=== PATIENT | male | born 1970 | race Caucasian/White ===

== ENCOUNTER → 2020-03-17 06:13 | Outpatient (CLI) | payer MEDICAID, SELFPAY ==
--- NOTE | 2020-03-17 06:13 | NM_ITS ---
APPROVED REPORT Exam: Nuclear Stress Test Indication: Chest pain, Fatigue, HTN Patient Location: Outpatient Stress Tech: Delmis Ramos [place] Tech:Anahi Orantes, ARRT, RT (R)(N) Ht: 6 ft 0 in Wt: 238 lbs HR: 71 bpm BP: 128/83 mmHg BSA: 2.29 m2 History: Chest pain, Fatigue, HTN Procedure: Patient exercised on Valerio protocol 8:36 minutes and sec, resting heart rate 71 bpm, resting blood pressure 128/83 mmHg, with exercise maximum heart rate achived was 156 bpm which is Greater than 85 % of the maximum predicted heart rate and blood pressure was 220/84 mmHg. Test was stopped due to SOA and leg fatigue. Patient denied any complaint of chest pain. Patient has Good exercise capacity, achieved 10.1 METs of workload on treadmill, the blood pressure response to exercise was Hypertensive. Electrocardiogram Resting electrocardiogram showed sinus rhythm right bundle branch block, with exercise there is less than 1.[address] segment depression noted from the baseline EKG. The EKG portion of the exercise Myoview is negative for ischemia. Cardiac Stress and Resting SPECT Images: Cardiac Stress and Resting SPECT images were obtained using technetium 99m Myoview 32.9 mCi stress and 10.08 mCi at rest. Gated SPECT for the analysis of segmental wall motion and calculation of the ejection fraction also done. Cardiac stress and resting SPECT images show mild fixed defect in the inferior wall with normal contractility on the gated SPECT is likely secondary to soft tissue attenuation, no reversible ischemia seen. Computer derived ejection fraction is 58% with no regional wall motion abnormality, right ventricle is normal size and contractility. Conclusion: 1. The EKG portion of the exercise Myoview is negative for ischemia, patient has good exercise capacity achieved 10.1 mets of workload on treadmill, the blood pressure response to exercise was hypertensive, there was no exercise-induced chest discomfort. 2. No scintigraphic evidence of reversible ischemia seen, computer derived ejection fraction is 58% with no regional wall motion abnormality, right ventricle is normal size and contractility. 3. Likely normal exercise Myoview study except for hypertensive blood pressure response with exercise. Electronically signed by : Tito Malone, 03/18/2020 10:56:50
--- NOTE | 2020-03-17 06:13 | CA_ITS ---
APPROVED REPORT Exam: Exercise Treadmill Technologist: Estefany Bui, Ht: 6 ft 0 in Wt: 238 lbs BSA: 2.29 m2 HR: 71 bpm BP: 128/83 mmHg Indications: Dyspnea Medical History Medications: Carvedilol,,,,, Stress Test Details Test: Valerio HR Resting HR: 79 bpm Max Heart Rate (APMHR): 170 bpm Max HR Achieved: 156 bpm Target HR (85% APMHR): 144 bpm % of APMHR: 91 Recovery HR: 99 bpm BP Resting BP: 135/84 mmHg Max BP: 220/84 mmHg Recovery BP: 147.0/81.0 mmHg ECG Clinical Exercise duration: 08:36 min Highest Stage Achieved: Exercise capacity: 10.1 METs Stress ECG Conclusion Resting EKG: NSR, RBBB, PVC Exercised 8:36 on Valerio protocol Max HR: 156 % of PM: 92% Max BP: 220/84 MET's: 10.1 Test stopped due to SOA, leg fatigue Symptoms: No Chest pain Arrhythmias/Ectopy: Rare PVC ST-T changes: Allowing for baseline RBBB the ST response to exercise is normal Conclusion: Normal GXT, Myoview images reported separately Electronically signed by : Tito Malone, 03/18/2020 10:53:48
--- NOTE | 2020-03-17 06:13 | CA_ITS ---
APPROVED REPORT EXAM: Comprehensive 2D, Doppler, and color-flow Echocardiogram Generation Mechanic Helper: Sheela Mgaana RDCS Ht: 6 ft 0 in Wt: 235lbs BSA: 2.28 BP: 140/91 mmHg Indications: SOA,RBBB,CP,PALPS,HTN 2D Dimensions LVOT 2.39 cm (M/F) 1.5-2.5 M-Mode Dimensions RVDd 2.70 cm (0.9-2.6) LVDd 5.15 cm (3.5-5.7) LVDs 3.42 cm (3.5-5.7) IVSd 1.01 cm (0.6-1.1) PWd 0.93 cm (0.6-1.1) EF (Teich) 62.00% FS 33.60% EDV (Teich) 126.60 mL ESV (Teich) 48.10 mL LV Diastology E/A Ratio 1.33 Mitral Valve MV A Velocity 46.00 (40-130 cm/s) Left Ventricle Left atrium is qualitatively mildly enlarged, left ventricle is normal size, mild concentric left ventricular hypertrophy, visually estimated ejection fraction 55% with no regional wall motion abnormality. Grade 1 diastolic dysfunction seen without tissue Doppler evidence of raise left atrial pressure. Right Ventricle Right atrium and right ventricular qualitatively mildly enlarged with normal contractility. Aortic Valve Aortic valve is minimally thickened and fibrosed, there is no aortic stenosis or aortic insufficiency. Mitral Valve Mitral valve is grossly normal, there is mild mitral regurgitation. Tricuspid Valve Tricuspid valve is grossly normal, there is mild tricuspid regurgitation, tricuspid regurgitation jet velocity is inadequate for calculation of the right ventricular systolic pressure. Pulmonic Valve Pulmonic valve is poorly visualized. Great Vessels Aortic root is normal size. Pericardium No significant pericardial effusion noted. Conclusion 1. Mild biatrial enlargement, normal left ventricular size, mild concentric left ventricular hypertrophy, visually estimated ejection fraction 55% with no regional wall motion abnormality. Grade 1 diastolic dysfunction seen without tissue Doppler evidence of raise left atrial pressure. 2. Mildly enlarged right ventricle with normal contractility. 3. Mild mitral and tricuspid regurgitation. 4. No significant pericardial effusion noted. Electronically signed by : Tito Malone, 03/18/2020 11:30:48
--- NOTE | 2020-03-17 08:13 | HMH.ITSHM ---
Current Home Medications as stated by this patient Thierry Pendleton or cordage sales representative. []CARVEDILOL OMEPRAZOLE
== END ==
PROVIDERS: PCP Family Medicine; Visit Provider Urology
DX: R06.00 Dyspnea, unspecified (principal); R00.2 Palpitations; R94.31 Abnormal electrocardiogram [ECG] [EKG]; I45.10 Unspecified right bundle-branch block
CPT/HCPCS: 78452; 93017; 93306; A9502

== ENCOUNTER → 2020-03-26 17:11 | Outpatient (CLI) | payer MEDICAID, SELFPAY ==
[2020-03-26 18:03] LABS: Alanine Aminotransferase 34 U/L (12-78); Albumin Level 4.8 g/dl (3.5-5.0); Albumin/Globulin Ratio 1.5 (1.1-1.8); Alkaline Phosphatase 91 U/L (38-126); Anion Gap 12.5 mEq/L (5-15); Aspartate Amino Transferase 34 U/L (17-59); Bilirubin,Total 1.6 mg/dl (0.2-1.3); Blood Urea Nitrogen 17 mg/dl (9-20); Carbon Dioxide 28 mmol/L (22.0-30.0); Chloride 102 mmol/L (98-107); Chol/HDL Ratio 6.7 (1-3.5); Cholesterol 261 mg/dl (140-200); Estimated Glomerular Filt Rate 102 ml/min (>60); GFR (African American) 124 ML/MIN (>60); Globulin 3.3 g/dL (1.3-3.2); Glucose 101 mg/dl (74-100); HDL Cholesterol 39 mg/dl (40-60); Potassium 4.5 mmoL/L (3.5-5.1); Sodium 138 mmol/L (136-145); Total Protein,Serum 8.1 g/dl (6.3-8.2)
[2020-03-26 18:06] LABS: Triglycerides 510 mg/dl (30-150)
== END ==
PROVIDERS: Visit Provider Family Medicine
DX: Z00.00 Encounter for general adult medical examination without abnormal findings (principal); E78.5 Hyperlipidemia, unspecified; I10 Essential (primary) hypertension; R00.2 Palpitations
CPT/HCPCS: 80053; 80061

== ENCOUNTER → 2020-09-24 10:08 | Outpatient (CLI) | payer OTHER, SELFPAY ==
[2020-09-24 11:48] LABS: Anion Gap 14.2 mEq/L (5-15); Blood Urea Nitrogen 23 mg/dl (9-20); Calcium 10.1 mg/dl (8.4-10.2); Carbon Dioxide 26 mmol/L (22.0-30.0); Chloride 104 mmol/L (98-107); Estimated Glomerular Filt Rate 71 ml/min (>60); GFR (African American) 86 ML/MIN (>60); Glucose 111 mg/dl (74-100); Potassium 5.2 mmoL/L (3.5-5.1); Sodium 139 mmol/L (136-145)
[2020-09-24 11:57] LABS: NT Pro Brain Natriuretic Pep. 12.7 pg/mL (0-125)
== END ==
PROVIDERS: Visit Provider Internal Medicine Cardiovascular Disease
DX: R06.00 Dyspnea, unspecified (principal); R00.2 Palpitations
CPT/HCPCS: 36415; 80048; 83880

== ENCOUNTER → 2020-10-04 11:39 | Outpatient (CLI) | payer OTHER, SELFPAY ==
--- NOTE | 2020-10-04 | CA_ITS ---
APPROVED REPORT EXAM: Comprehensive 2D, Doppler, and color-flow Echocardiogram Airways Control Specialist: Torri Godinez, RCS, RVS Ht: 6 ft 0 in Wt: 244lbs BSA: 2.32 BP: 126/76 mmHg Indications: s/p COVID-19, SOA Palpitations, Dyspnea 2D Dimensions IVSd 0.89 cm LVEF (Visual) 66.50 % PWd 1.07 cm LA Volume 57.70 mL LVDd 4.15 cm LA Volume Index 24.90 mL/m2 (M/F) 16-34 LVDs 2.64 cm LVOT 1.97 cm (M/F) 1.5-2.5 M-Mode Dimensions LA Diam 4.12 cm (1.9-4.0) Ao Diam 3.83 cm (2.0-3.7) EPSs 0.69 cm TAPSE 2.18 (<1.7) LV Diastology E Decel Time 250.00 (160-240 msec) E/A Ratio 0.85 MED E' 7.10 (< 7 cm/sec) MED A' 12.60 cm/s E'/MED E' Ratio 6.72 (>14) LAT E' 9.70 (<10 cm/sec) LAT A' 12.40 cm/s E/LAT E' Ratio 4.92 (>14) Aortic Valve AO Peak GR. 2.70 mmHg Mitral Valve MV E Max Valeriy. 48.00 (40-130 cm/s) MV A Velocity 56.00 (40-130 cm/s) E/A Ratio 0.85 MV Decel. Time 250.00 (160-240 ms) MV PHT 73.00 ms Pulmonary Valve PV Peak Velocity 64.00 (50-150 cm/s) Tricuspid Valve TR P. Velocity 186.00 cm/s RAP Estimate 10.00 mmHg RVSP 23.80 mmHg Left Ventricle Left atrium is mildly enlarged, left ventricle is normal size, left ventricle wall thickness is preserved with normal, there is preserved left ventricular systolic function, seen visually estimated ejection fraction 55% with no regional wall motion abnormality, grade 1 diastolic dysfunction seen without tissue Doppler evidence of raise left atrial pressure. Right Ventricle Right atrium and right ventricle are normal size and contractility. Aortic Valve Aortic valve is minimally fibrosed, there is no aortic stenosis or aortic insufficiency. Mitral Valve Mitral valve is grossly normal, there is trace mitral regurgitation. Tricuspid Valve Tricuspid grossly normal, there is trace tricuspid regurgitation, tricuspid regurgitation jet velocity is inadequate for calculation of the right ventricular systolic pressure. Pulmonic Valve Pulmonic valve is poorly visualized. Great Vessels Aortic root is normal size. Pericardium No significant pericardial effusion noted. Conclusion 1. Normal left ventricular size, preserved left ventricular systolic function, visually estimated ejection fraction 55% with no regional wall motion abnormality, grade 1 diastolic dysfunction seen without tissue Doppler evidence of raise left atrial pressure. 2. Trace mitral and tricuspid regurgitation. 3. No significant pericardial effusion noted. Electronically signed by : Tito Malone, 10/04/2020 20:41:58
--- NOTE | 2020-10-04 11:43 | CT_ITS ---
PROCEDURE: CT CHEST WO CON CLINICAL INDICATION: dyspnea COMPARISON: No exams were available for comparison TECHNIQUE: Axial images obtained with sagittal and coronal reformats. All CT scans at the facility use one or more dose reduction, viz: automated exposure control, ma/kV adjustment per patient size (including targeted exams where dose is matched to indication, i.e. head), or iterative reconstruction technique. FINDINGS: HEART AND MEDIASTINAL STRUCTURES: The heart size is normal. No pleural pericardial effusions. The visualized thoracic aorta is unremarkable. No significant mediastinal adenopathy. Evaluation of hilar is limited due to lack of intravenous contrast although no gross lymphadenopathy is noted. LUNGS AND PLEURAL SPACES: The lungs are clear without focal consolidation, pleural effusions or pneumothorax. Nodules are noted in the left lower lobe measuring 3 millimeters. The central tracheobronchial tree is patent. No other suspicious lung nodules. BONY STRUCTURES: Multilevel degenerative changes of the thoracic spine noted. UPPER ABDOMEN: Evaluation of the upper abdominal solid viscera are unremarkable. No focal lesions are noted within the limitations of the study. Moderate hiatus hernia is noted. ADDITIONAL FINDINGS: The thyroid gland is unremarkable. IMPRESSION: No acute intrathoracic abnormality. Nodules in the left lower lobe measuring up to 3 millimeters. No follow-up is recommended as per modified Fleischner criteria. Moderate hiatus hernia. Dictated by: Tiara Whittington 10/04/2020 17:08 Tiara Whittington in [place] 10/04/2020 17:08
[2020-10-04 14:09] LABS: Chloride 105 mmol/L (98-107); Potassium 4.3 mmoL/L (3.5-5.1); Sodium 139 mmol/L (136-145)
[2020-10-04 14:12] LABS: Anion Gap 11.3 mEq/L (5-15); Blood Urea Nitrogen 20 mg/dl (9-20); Calcium 9.5 mg/dl (8.4-10.2); Carbon Dioxide 27 mmol/L (22.0-30.0); Estimated Glomerular Filt Rate 71 ml/min (>60); GFR (African American) 86 ML/MIN (>60); Glucose 105 mg/dl (74-100)
== END ==
PROVIDERS: PCP Family Medicine; Visit Provider Internal Medicine Cardiovascular Disease
DX: R06.00 Dyspnea, unspecified (principal); R00.2 Palpitations; R06.83 Snoring; R40.0 Somnolence; B94.8 Sequelae of other specified infectious and parasitic diseases; Z86.16 Personal history of COVID-19
CPT/HCPCS: 36415; 71250; 80048; 93306; 95806

== ENCOUNTER → 2021-12-12 15:39 | Outpatient (CLI) | payer OTHER, SELFPAY ==
--- NOTE | 2021-12-12 15:39 | MR_ITS ---
PROCEDURE INFORMATION: Exam: MR Right Lower Extremity Joint Without Contrast, Knee Exam date and time: 12/12/2021 3:56 PM Age: 51 years old Clinical indication: Pain; Knee; Right; Additional info: Acl injury after trauma. PT fell and twisted knee x3wks ago. Swelling in knee. Pain when bending. TECHNIQUE: Imaging protocol: MR of the Right lower extremity joint without contrast. Exam focused on the knee. COMPARISON: No relevant prior studies available. FINDINGS: Bones and cartilage: There is no acute fracture or dislocation. No aggressive bone lesions are present. There is grade II (out of IV) low-grade partial-thickness cartilage loss involving the patellofemoral joint with a superimposed 1.4 x 0.7 cm focus of full-thickness cartilage loss involving the lateral patellar facet (series 3/image 10, series 4/image 9), without underlying subchondral edema. There is grade II (out of IV) low-grade partial-thickness cartilage loss involving the lateral compartment. No significant cartilage damage involves the medial compartment. Joint spaces: A mild joint effusion involves the knee. Medial meniscus: The medial meniscus demonstrates mucinous degeneration without tear. Lateral meniscus: A complex tear involves the posterior horn of the lateral meniscus near the root. Anterior cruciate ligament: The anterior cruciate ligament is intact. Posterior cruciate ligament: The posterior cruciate ligament is intact. Medial capsule and supporting structures: The medial collateral ligament is intact. Lateral capsule and supporting structures: The lateral collateral ligament complex is intact. Extensor mechanism of knee: The extensor mechanism is intact without significant tendinosis. Muscles: Unremarkable. Soft tissues: A moderate amount of edema involves the anterior knee subcutaneous fat. IMPRESSION: 1. Complex tear of the lateral meniscus posterior horn. 2. Focus of grade IV (out of IV) full-thickness cartilage loss measuring 1.4 x 0.7 cm involving the lateral patellar facet, with adjacent grade II low-grade partial-thickness cartilage loss. 3. No tear of the anterior cruciate ligament. 4. No fracture.
== END ==
PROVIDERS: PCP Family Medicine; Visit Provider Family Medicine
DX: M25.561 Pain in right knee (principal)
CPT/HCPCS: 73721

== ENCOUNTER → 2022-01-10 12:00 | Outpatient (CLI) | payer OTHER, SELFPAY ==
--- NOTE | 2022-01-10 12:11 | XR_ITS ---
FINAL REPORT CLINICAL HISTORY: Rt knee pain FINDINGS: RIGHT KNEE Four views were obtained. There is no acute fracture or dislocation. There is mild patellofemoral degenerative change. No joint effusion is identified. No soft tissue abnormality is identified. IMPRESSION: Mild degenerative change without acute process. Reviewed, Interpreted and Dictated by Vic Soliman III, MD Transcribed by Celia Yousif Authenticated and [facility]
== END ==
PROVIDERS: PCP Family Medicine; Visit Provider Physician Assistant Surgical
DX: M25.561 Pain in right knee (principal)
CPT/HCPCS: 73564

== ENCOUNTER → 2022-02-08 10:21 | Outpatient (CLI) | payer OTHER, SELFPAY ==
--- NOTE | 2022-02-08 10:26 | XR_ITS ---
FINAL REPORT CLINICAL HISTORY: pre op, sob FINDINGS: Two views of the chest were obtained. The heart size and pulmonary vascularity are within normal limits. The mediastinum is normal. There is mild left lung base atelectasis or pneumonia. There is no pneumothorax. The bony thorax is intact. IMPRESSION: Mild left lung base atelectasis or pneumonia. Reviewed, Interpreted and Dictated by Vic Soliman III, MD Transcribed by Aarti Pitts Authenticated and [facility]
[2022-02-08 11:02] LABS: Basophils # 0.1 K/mm3 (0-0.2); Basophils % 1.2 % (0.1-2.0); Eosinophils # 0.3 K/mm3 (0.0-0.4); Eosinophils % 4.8 % (0.1-12.0); Hematocrit 43.1 % (42.0-52.0); Hemoglobin 13.9 g/dL (14.1-18.0); Lymphocytes # 2.1 K/mm3 (0.7-4.5); Lymphocytes % 32.2 % (10-50); Mean Corpuscular HGB Conc 32.2 g/dL (31.8-35.4); Mean Corpuscular Hemoglobin 28.4 pg (27.0-31.2); Mean Corpuscular Volume 88.4 fl (80-94); Mean Platelet Volume 7.9 fl (7.4-10.4); Monocytes # 0.5 K/mm3 (0.1-1.0); Monocytes % 7.5 % (1.7-9.3); Neutrophils # 3.6 K/mm3 (1.8-7.8); Neutrophils % 54.3 % (37.0-80.0); Platelet Count 342 K/mm3 (142-424); Red Blood Count 4.88 M/mm3 (4.60-6.20); Red Cell Distribution Width 13.5 % (11.5-17.5); White Blood Count 6.6 K/mm3 (4.8-10.8)
[2022-02-08 11:31] LABS: Potassium 4.5 mmoL/L (3.5-5.1); Sodium 140 mmol/L (136-145)
[2022-02-08 11:32] LABS: Chloride 104 mmol/L (98-107)
[2022-02-08 11:34] LABS: Albumin Level 4.6 g/dl (3.5-5.0); Albumin/Globulin Ratio 1.6 (1.1-1.8); Alkaline Phosphatase 60 U/L (38-126); Anion Gap 12.5 mEq/L (5-15); Bilirubin,Total 0.5 mg/dl (0.2-1.3); Carbon Dioxide 28 mmol/L (22.0-30.0); Globulin 2.8 g/dL (1.3-3.2); Total Protein,Serum 7.4 g/dl (6.3-8.2)
[2022-02-08 11:35] LABS: Alanine Aminotransferase 37 U/L (12-78); Aspartate Amino Transferase 39 U/L (17-59)
[2022-02-08 11:36] LABS: Calcium 10.2 mg/dl (8.4-10.2); Glucose 120 mg/dl (74-100)
[2022-02-08 12:01] LABS: Blood Urea Nitrogen 20 mg/dl (9-20); Estimated Glomerular Filt Rate 89 ml/min (>60); GFR (African American) 107 ML/MIN (>60)
== END ==
PROVIDERS: PCP Family Medicine; Visit Provider Orthopaedic Surgery
DX: S83.281A Other tear of lateral meniscus, current injury, right knee, initial encounter (principal)
CPT/HCPCS: 36415; 71046; 80053; 85025

== ENCOUNTER → 2022-02-14 12:32 | Outpatient (CLI) | payer OTHER, SELFPAY | PROVIDERS: PCP Family Medicine; Visit Provider Orthopaedic Surgery | DX: Z01.812 Encounter for preprocedural laboratory examination (principal); Z20.822 Contact with and (suspected) exposure to COVID-19; S83.8X1A Sprain of other specified parts of right knee, initial encounter | CPT/HCPCS: C9803; U0003; U0005 ==

== ENCOUNTER 2022-02-16 07:29 | Day surgery (SDC) | payer OTHER, SELFPAY ==
[2022-02-14 13:22] VITALS: BMI 33.3
[2022-02-16] VITALS (13 sets, daily range): BP systolic 115–148; BP diastolic 76–91; PULSE 83–93; RESP 16–18; TEMP 36.3–43; O2SAT 93–98
--- NOTE | 2022-02-16 08:23 | P.PN_ITS ---
[facility] Anesthesia Checklist - Patient Identification Patient Identification: Arm Band - Structural Data Admitted From: Home Planned Operative Procedure/s: Knee arthroscopy Consent for Planned Operative Procedure(s) Verified: Yes - NPO Status Verified Time NPO: 00:00 - Additional verifications Anesthesia Reactions: No Hx Blood Transfusions: No Blood Transfusion Reaction: No - Airway Assessment C-Spine Mobility Assessed: Yes TMJ Mobility Assessed: Yes Dentition: Good Dentition - Neurological Assessment Level of Consciousness: Awake Hx Seizures: No Numbness or tingling in extremities: No - Anesthesia Plan Anesthesia Risk discussed: Yes Anesthesia Plan: Verified ASA Class: III Anesthesia Type: General [facility] History I have reviewed the patient's past medical history: Yes Medical History: Reports:: Gastroesophageal Reflux Disease(GERD), Hypertension, Palpitations Denies:: Cancer, Diabetes Mellitus Type 1, Diabetes Mellitus Type 2, Internal Pacemaker, MRSA, Seizures *Have you ever received a pneumonia vaccine?: No *Have you received a flu vaccine this season?: No Other Medical History: Denies: Blood Transfusion Reaction Anesthesia experience/problems:: None Laterality Cases: Bilateral: Tonsillectomy Other Surgeries: Yes: Cardiac Catheterization. No: Pacemaker Amputation: No - *Social History Last grade of school completed: High school graduate Smoking Status: Never smoker Alcohol Intake: current Alcohol Intake Frequency:: a few times a month Substance Use Type: denies use *Occupational Status:: employed Housing: house Household Members: spouse *Travel in the last 8 weeks: None Family Hx:: Hypertension, Stroke
--- NOTE | 2022-02-16 11:13 | HMH.ANESI ---
[facility] Anesthesia Record Part I Intake, IV Amount: 200 Estimated blood loss (mL): 10 Urine output (mL): 0 Blood Pressure: 130/81 SaO2: 95 Pulse Rate: 93 Respiratory Rate: 18 Temperature: 98.3 F Patient is:: Drowsy, Oral/Nasal airway Stable to PACU at:: 11:10
--- NOTE | 2022-02-16 11:55 | HMH.OPNOTE ---
Date of procedure: 02/16/22 Pre-op Diagnosis:: 1. Lateral meniscus tear, right knee 2. Osteoarthritis, right knee 3. Work-related injury, right knee Post-op Diagnosis:: 1. Medial meniscus tear, right knee 2. Osteoarthritis, right knee 3. Pathological medial plica, right knee 4. Work-related injury, right knee Procedure performed:: 1. Examination of right knee under anesthesia 2. Partial medial meniscectomy, right knee 3. Chondroplasty, right knee 4. Resection of medial plica, right knee Surgeon:: Sena Whittington MD Head Bone Grinder(s):: Bambi Orourke PA-C TRUCK BODY BUILDER APPRENTICE:: Laxmi Fitch Anesthesia: LMA Estimated blood loss (mL): 2 Clinical Note:: The patient is a 52-year-old male with RIGHT knee pain following work-related injury almost 3 months ago which is unresponsive to conservative management and evidence of a lateral meniscal tear and arthritic changes on imaging. Clinically his symptoms are consistent with the above diagnosis. Resection of the torn lateral meniscus, chondroplasty and debridement is indicated to relieve the pain and improve function of the knee. Please refer to my office note for full details. Operative findings:: Examination of the RIGHT knee under anesthesia, showed a stable knee joint. There is a small amount of knee joint effusion. Knee range of motion is from 0-130? of flexion. Arthroscopic findings included diffuse grade 2 degenerative changes over the patellofemoral and medial compartment articular surfaces; grade 2- 3 changes were noted over the lateral compartment. Even though the MRI was reported as showing a lateral meniscal tear, I did not find any lateral meniscal tear during arthroscopy. The lateral meniscus was thoroughly evaluated including probing and no tears were found. The medial meniscus had small degenerative tearing involving the body and posterior horn. The anterior cruciate ligament and posterior cruciate ligaments were intact. Mild synovitis was noted. Operative note:: On the day of the procedure the patient and his were met in the preoperative area and positively identified. A physical examination was performed and documented. The limb was marked and initialed by me. I have again discussed the diagnosis, management options including both nonsurgical and surgical. I have discussed the proposed surgical procedure, risks and benefits and alternatives in detail. The complications discussed include but are not limited to infection, injury to nerves and blood vessels, injury to the ligaments and tendons, knee stiffness, arthrofibrosis, incomplete relief, incomplete functional recovery, DVT, PE, CRPS, complications related to anesthesia including heart attack, stroke and even . I have also discussed about the likely need for further surgery in future. I told him that there were no guarantees with surgery; he could be no better or even worse. We also discussed the postoperative recovery and rehabilitation that might be needed. I believe the patient to be well informed with regard to the proposed surgery. I told him that it would take few months for full recovery of the knee after surgery. He expressed a full understanding and wished to proceed with the planned surgery. Patient understood the risks, agreed to proceed with surgery and no guarantees or assurances were given or implied. Patient was brought to the operating room and placed supine on the operating table. All the bony prominences were appropriately padded. A general anesthesia was administered by the data security administrator. A well-padded tourniquet cuff was placed over the right upper thigh. Examination of the right knee under anesthesia was performed. A small amount of knee effusion was noted. Knee range of motion was 0-130 degrees of flexion. Knee joint is noted to be ligamentously stable. The right knee was then prepped and draped in the usual sterile fashion. A preprocedure timeout was performed as per protocol. Administration of prophylactic IV antibiotics
--- NOTE | 2022-02-16 12:51 | SUR.PHASEII ---
Return call from [facility] primary, Dr. Urban calling in Levaquin 500mg QD for 10 days to pt's pharmacy. Instructed pt and on this new medication as well as use of IS every hour for next few days. Verbalized understanding. Medicated pt with [place] 5/325 for c/o of 3/[address] for [address] long drive home.
--- NOTE | 2022-02-16 14:14 | PC.NURSE ---
1136-detailed report called to URSZULA Busch 1140-pt transported to post op via stretcher w/garrett rails up and left in care of URSZULA Busch with bed locked in lowest position, vss, pt stable
[2022-02-17 12:34] VITALS: BP 115/78; PULSE 85; TEMP 36.4
--- NOTE | 2022-02-17 12:34 | P.PN_ITS ---
[facility] Anesthesia Record Part II Discharge Time: 11:40 Destination: Surgical Day Care (OP Surgery) PACU nurse assessment reviewed?: Yes Patient Condition:: Good Anesthesia Complications:: None Swallowing reflex intact?: Yes Cyanosis?: No Blood Pressure: 115/78 Pulse Rate: 85 Temperature: 97.6 F Mental Status: Alert & Oriented Pain level:: 0 Nausea and/or vomitting:: None Intake, IV Amount: 0
== END 2022-02-16 13:00 | disposition home or self-care (01) ==
LOC: OR 07:31
PROVIDERS: PCP Family Medicine; Visit Provider Orthopaedic Surgery
PROC: (CPT 29870; principal; 2022-02-16 09:00)
DX: S83.241A Other tear of medial meniscus, current injury, right knee, initial encounter (principal); I10 Essential (primary) hypertension; Y99.0 Civilian activity done for income or pay; M67.51 Plica syndrome, right knee; W18.39XA Other fall on same level, initial encounter; Y93.H2 Activity, gardening and landscaping
CPT/HCPCS: 29881; 29879; 96374; J2405

== ENCOUNTER → 2022-08-11 12:16 | Outpatient (CLI) | payer BC, SELFPAY ==
[2022-08-11 13:07] LABS: Basophils # 0.1 K/mm3 (0-0.2); Basophils % 1.1 % (0.1-2.0); Eosinophils # 0.3 K/mm3 (0.0-0.4); Hematocrit 41.8 % (42.0-52.0); Hemoglobin 13.9 g/dL (14.1-18.0); Lymphocytes # 1.6 K/mm3 (0.7-4.5); Mean Corpuscular HGB Conc 33.1 g/dL (31.8-35.4); Mean Corpuscular Hemoglobin 27.8 pg (27.0-31.2); Monocytes # 0.3 K/mm3 (0.1-1.0); Neutrophils # 2.9 K/mm3 (1.8-7.8); Neutrophils % 56.8 % (37.0-80.0); Platelet Count 368 K/mm3 (142-424); Red Blood Count 4.98 M/mm3 (4.60-6.20); Red Cell Distribution Width 13.6 % (11.5-17.5)
[2022-08-11 13:26] LABS: Alanine Aminotransferase 33 U/L (12-78); Albumin Level 4.5 g/dl (3.5-5.0); Alkaline Phosphatase 52 U/L (38-126); Anion Gap 10.4 mEq/L (5-15); Aspartate Amino Transferase 31 U/L (17-59); Bilirubin,Direct 0.3 mg/dl (0.0-0.4); Bilirubin,Indirect 0.4 mg/dL (0.0-0.9); Bilirubin,Total 0.7 mg/dl (0.2-1.3); Bilirubin,Unconjugated 0.4 mg/dL (0.0-1.1); Blood Urea Nitrogen 18 mg/dl (9-20); Calcium 9.2 mg/dl (8.4-10.2); Carbon Dioxide 29 mmol/L (22.0-30.0); Chloride 106 mmol/L (98-107); Chol/HDL Ratio 5.7 (1-3.5); Cholesterol 177 mg/dl (140-200); Estimated Glomerular Filt Rate 78 ml/min (>60); GFR (African American) 95 ML/MIN (>60); Glucose 118 mg/dl (74-100); HDL Cholesterol 31 mg/dl (40-60); Magnesium 1.9 mg/dl (1.6-2.3); Potassium 4.4 mmoL/L (3.5-5.1); Sodium 141 mmol/L (136-145); Total Protein,Serum 7.4 g/dl (6.3-8.2); Triglycerides 239 mg/dl (30-150); VLDL Cholesterol 48 mg/dL (0-40)
[2022-08-11 13:37] LABS: Direct LDL Cholesterol 101.41 mg/dL (100-129)
[2022-08-11 13:42] LABS: Free T4 (Free Thyroxine) 1.16 ng/dl (0.78-2.19)
[2022-08-11 13:56] LABS: Thyroid Stimulating Hormone 1.56 uIU/mL (0.465-4.68)
== END ==
PROVIDERS: PCP Family Medicine; Visit Provider Internal Medicine Cardiovascular Disease
DX: R06.00 Dyspnea, unspecified (principal); R00.2 Palpitations; I45.10 Unspecified right bundle-branch block; R94.31 Abnormal electrocardiogram [ECG] [EKG]
CPT/HCPCS: 36415; 80048; 80061; 80076; 83735; 84439; 84443; 85025

== ENCOUNTER → 2022-08-22 07:42 | Outpatient (CLI) | payer SELFPAY ==
--- NOTE | 2022-08-22 07:52 | CT_ITS ---
FINAL REPORT TECHNIQUE: Thin section axial images were obtained through the heart and coronary arteries per CT coronary calcium score protocol. This study was performed with techniques to keep radiation doses as low as reasonably achievable (ALARA). Individualized dose reduction techniques using automated exposure control or adjustment of mA and/or kV according to the patient's size were employed. CLINICAL HISTORY: SCREENING FINDINGS: On the axial images, no calcification is identified. This gives a coronary artery calcium score of 0 based on the Agatston scale. This coronary calcium score places the patient within the 0 percentile based on age and gender. The heart is normal in size. There is no pleural or pericardial effusion. Limited evaluation of the lungs reveal no suspicious nodule. There is a moderate to large hiatal hernia. IMPRESSION: Coronary artery calcium score of 0 places patient within the 0 percentile based on age and gender. Reviewed, Interpreted and Dictated by Roseann Wright MD Transcribed by Celia Yousif Authenticated and . [facility]
== END ==
PROVIDERS: PCP Family Medicine; Visit Provider Internal Medicine Cardiovascular Disease
DX: Z13.6 Encounter for screening for cardiovascular disorders (principal)
CPT/HCPCS: 75571

== ENCOUNTER → 2022-10-19 07:41 | Outpatient (CLI) | payer BC, SELFPAY ==
--- NOTE | 2022-10-19 07:41 | MR_ITS ---
FINAL REPORT CLINICAL HISTORY: Injury LBP Bilateral Leg Numbness. LOW BACK PAIN. SYMPTOMS XYEARS. FINDINGS: MRI LUMBAR SPINE W/O CONTRAST Multiplanar MR imaging of the lumbar spine was performed without contrast. On the sagittal T2-weighted images, disc degeneration is seen at multiples. A hemangioma is noted in the L2 vertebral body. There is mild retrolisthesis of L2 on L3. The vertebral alignment is otherwise normal. There is no evidence of fracture. The conus has an unremarkable appearance. T12-L1: An annular disc bulge with facet arthropathy is present. L1-2: An annular disc bulge is present with mild left neural foraminal narrowing. L2-3: An annular disc bulge is present with mild bilateral neural foraminal narrowing. L3-4: An annular disc bulge is present with mild bilateral neural foraminal narrowing. L4-5: An annular disc bulge with facet arthropathy is present. There is a small central disc protrusion with mild left neural foraminal narrowing. L5-S1: An annular disc bulge with facet arthropathy is present. IMPRESSION: Multilevel disc degeneration and spondylosis with areas of mild neural foraminal narrowing. Reviewed, Interpreted and Dictated by Vic Soliman III, MD Transcribed by Aarti Pitts Authenticated and . [facility]
== END ==
LOC: RAD 07:41
PROVIDERS: PCP Family Medicine; Visit Provider Family Medicine
DX: M54.50 Low back pain, unspecified (principal); R20.0 Anesthesia of skin
CPT/HCPCS: 72148; 76376

== ENCOUNTER → 2022-11-09 08:39 | Outpatient (POV) | payer BC, SELFPAY ==
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
[2022-11-09 09:26] VITALS: BP 136/79; PULSE 77; RESP 18; O2SAT 98; BMI 75.0
== END ==
PROVIDERS: PCP Family Medicine; Visit Provider Nurse Practitioner Family
DX: M51.16 Intervertebral disc disorders with radiculopathy, lumbar region (principal); M47.26 Other spondylosis with radiculopathy, lumbar region; M25.551 Pain in right hip; M25.552 Pain in left hip
CPT/HCPCS: 99202; G0463

== ENCOUNTER 2022-11-17 13:04 | Day surgery (SDC) | payer BC, SELFPAY ==
[2022-11-17 13:30] VITALS: BP 123/77; PULSE 77; RESP 20; TEMP 36.9; O2SAT 97; BMI 34.2
[2022-11-17 13:52] VITALS: BP 153/69; PULSE 84; RESP 18; O2SAT 96
[2022-11-17 14:10] VITALS: BP 121/75; PULSE 76; RESP 20
--- NOTE | 2022-11-17 14:11 | P.PCN_ITS ---
[facility] Procedure Note Date: 11/17/22
--- NOTE | 2022-11-17 14:11 | P.PCN_ITS ---
Procedure Date: 11/17/22 Time: 14:11 Anesthesiologist:: Javier Shore MD Complications:: None Pre-procedure Diagnosis:: Degenerative disc disease of lumbar spine with lumbar radiculopathy symptoms Post-procedure Diagnosis:: Same Indications for Procedure:: This patient is a pleasant 52-year-old white male who we are treating for low back pain with lumbar radiculopathy symptoms. He has increasing pain in his low back radiating down his right leg. We will plan on lumbar epidural steroid in jection under fluoroscopy today. Procedure Details:: Informed consent was obtained and the risk and benefits of the procedure was explained to the patient. The patient was taken to the procedure room. The patient was placed prone on the procedure table. The patient was prepped and draped in sterile fashion. C-arm fluoroscopy was used to view the lumbar spine. Skin and subcutaneous tissues were anesthetized using lidocaine. I placed an 18-gauge epidural needle and advanced into the L4-L5 interspace using fluoroscopic guidance and [id number] to air. After confirmation of needle placement in the epidural space with dye I injected 2 mL of lidocaine 1.5% with Depo-Medrol 80 mg. Patient tolerated the procedure well with no complications. Plan and Disposition:: We will follow-up with him in 2 weeks. Will reevaluate symptoms at that time.
--- NOTE | 2022-11-17 14:11 | HMH.PROCNOTE ---
[facility] Procedure Note Date: 11/17/22
== END 2022-11-17 14:10 | disposition home or self-care (01) ==
PROVIDERS: PCP Family Medicine; Visit Provider Anesthesiology
DX: M51.16 Intervertebral disc disorders with radiculopathy, lumbar region (principal)
CPT/HCPCS: 62323; J1040; Q9966

== ENCOUNTER → 2022-12-01 10:15 | Outpatient (POV) | payer BC, SELFPAY ==
[2022-12-01 10:57] VITALS: BP 136/77; PULSE 82; RESP 18; O2SAT 97; BMI 34.2
--- NOTE | 2022-12-01 11:21 | A.OFFVIS_ITS ---
[facility] Pain Management SOAP Note Subjective:: Patient is a pleasant 52-year-old male that comes our clinic today for follow-up visit after receiving lumbar epidural steroid injection at the L4-5 level. Patient reports minimal to no relief with the injection. Patient continues with complaints regarding chronic low back pain midline as well as off midline bilaterally. Bilateral hip pain. Patient rates his pain 7/10. Patient's lumbar MRI reveals multilevel degenerative disc lumbar spine. Disc bulge L3-4, L4-5, L5-S1. Multilevel facet arthropathy and spondylosis lumbar spine. Patient continues to fail conservative treatments such as NSAIDs and/or Tylenol and home exercise program.. Objective:: Patient is awake alert Ollie x3. No acute distress. Flexion-extension lumbar spine somewhat guarded secondary to pain. Deep and reflexes upper lower extremities normal. Motor strength upper lower extremities normal. There is no gross sensory deficit. Gait is normal. Assessment:: Degenerative disc disease lumbar spine multilevels. Lumbar radiculopathy. Multilevel lumbar disc bulge. Plan:: Discussed in detail with the patient regarding treatment options. We will proceed with a second lumbar epidural steroid injection at the L4-5 level. I discussed in detail with the patient regarding spine surgery consultation if in fact the second epidural does not produce any relief. [facility] Disclaimer: The information contained in this section may have been updated after the jose ent was seen, as this information can be updated by other users. Medical History Abnormal EKG Daytime somnolence Dyspnea Palpitations Right bundle branch block Snoring Family History (Updated 11/17/22 @ 14:15 by Padmini Branch RN) Other No significant family history Social History (Updated 11/17/22 @ 14:15 by Padmini Branch RN) Smoking Status: Never smoker alcohol intake: current substance use type: denies use current occupational status: employed Travel in the last 8 weeks: None household members: spouse housing: house current occupational exposures/hazards: No caffeine: Yes
== END ==
PROVIDERS: PCP Family Medicine; Visit Provider Nurse Anesthetist, Certified Registered
DX: M51.16 Intervertebral disc disorders with radiculopathy, lumbar region (principal)
CPT/HCPCS: 99212; G0463